=== PATIENT | female | born 1995 | race Caucasian/White ===

== ENCOUNTER 2018-07-07 03:38 | Emergency (ER) | payer MEDICAID ==
[~2018-07-07] VITALS: Ht 162.6 cm; Wt 69.0 kg
[~2018-07-07 03:38] MED LIST: IBUP-1594 PO
[2018-07-07] MEDS ORDERED: HYDROcodone/acetaminophen 10/325mg tab PO ONE (04:50)
[2018-07-07] MEDS ORDERED: amox tr/potassium clavulanate 875/125mg TAB PO ONE (04:50)
[2018-07-07] MEDS ORDERED: AMOX-580 PO (04:51)
[2018-07-07] MEDS ORDERED: HYDR-4383 PO (04:51)
[2018-07-07 05:21] VITALS: BP 122/74
== END 2018-07-07 05:37 | disposition home or self-care (01) ==
LOC: ER 03:39
DX: K02.9 Dental caries, unspecified (principal); K04.7 Periapical abscess without sinus; Z56.0 Unemployment, unspecified; Z79.899 Other long term (current) drug therapy
CPT/HCPCS: 99283

== ENCOUNTER 2018-08-21 08:36 | Emergency (ER) | payer MEDICAID ==
[~2018-08-21] VITALS: Ht 162.6 cm; Wt 71.0 kg
[~2018-08-21 08:36] MED LIST changes: +HYDR-4383 PO
[2018-08-21 09:57] LABS: BASOPHILS % (AUTO) 0.5 % (0-1); EOSINOPHILS # (AUTO) 0.1 X10'3 (0-0.9); EOSINOPHILS % (AUTO) 1.5 % (0-6); HEMATOCRIT 38.5 % (35.0-45.0); HEMOGLOBIN 13.2 g/dl (12.0-16.0); LYMPHOCYTES # (AUTO) 1.6 X10'3 (1.1-4.8); LYMPHOCYTES % (AUTO) 25.8 % (21-51); MEAN CORPUSCULAR HEMOGLOBIN 31.4 PG (27.0-31.0); MEAN CORPUSCULAR HGB CONC 34.3 g/dL (33.0-36.5); MEAN CORPUSCULAR VOLUME 91.4 FL (78-98); MEAN PLATELET VOLUME 7.1 FL (7.4-10.4); MONOCYTES # (AUTO) 0.6 X10'3 (0-0.9); MONOCYTES % (AUTO) 9.4 % (2-12); NEUTROPHILS # (AUTO) 3.9 X10'3 (1.8-7.7); NEUTROPHILS % (AUTO) 62.8 % (42-75); PLATELET COUNT 219 X10'3 (140-440); RED BLOOD COUNT 4.21 X10'6 (4.20-5.60); RED CELL DISTRIBUTION WIDTH 13.1 % (11.5-14.5); WHITE BLOOD COUNT 6.2 X10'3 (4.5-11.0)
[2018-08-21 10:06] LABS: ALANINE AMINOTRANSFERASE 26 U/L (12-78); ALBUMIN 3.7 G/DL (3.4-5.0); ALBUMIN/GLOBULIN RATIO 1.1 (1.1-1.5); ALKALINE PHOSPHATASE 72 IU/L (46-116); ANION GAP 8 (8-16); ASPARTATE AMINO TRANSFERASE 17 U/L (10-37); BILIRUBIN,TOTAL 0.4 MG/DL (0.1-1.0); BLOOD UREA NITROGEN 9 MG/DL (7-18); BUN/CREATININE RATIO 12.7 (6.6-38.0); CALCIUM 8.8 MG/DL (8.5-10.1); CHLORIDE 106 MMOL/L (99-107); CREATININE 0.71 MG/DL (0.40-0.90); GLUCOSE 90 MG/DL (70-104); POTASSIUM 3.8 MMOL/L (3.5-5.1); SODIUM 138 MMOL/L (135-145); TOTAL CARBON DIOXIDE 24.5 MMOL/L (24-32); eGFR > 90 ML/MIN
[2018-08-21 10:13] LABS: MAGNESIUM 1.9 MG/DL (1.5-2.4); PHOSPHORUS 3.5 MG/DL (2.3-4.5)
[2018-08-21] MEDS ORDERED: levoTHYROXINE 112mcg tablet PO SCH (11:20)
[2018-08-21] MEDS ORDERED: levoTHYROXINE 112mcg tablet PO ONE (11:20)
[2018-08-21] MEDS ORDERED: LEVO75TA PO (11:23)
[2018-08-21 11:43] VITALS: BP 119/80
== END 2018-08-21 11:48 | disposition home or self-care (01) ==
LOC: ER 08:37
DX: E03.9 Hypothyroidism, unspecified (principal); H53.9 Unspecified visual disturbance; Z56.0 Unemployment, unspecified; Z88.8 Allergy status to other drugs, medicaments and biological substances; Z79.899 Other long term (current) drug therapy
CPT/HCPCS: 36415; 80053; 83735; 84100; 84443; 85025; 99283

== ENCOUNTER 2018-10-05 06:15 | Emergency (ER) | payer MEDICAID ==
[~2018-10-05] VITALS: Ht 160 cm; Wt 68.6 kg
[2018-10-05 06:20] VITALS: BP 117/66
[2018-10-05] MEDS ORDERED: CEPH500C5 PO (07:04)
== END 2018-10-05 07:30 | disposition home or self-care (01) ==
LOC: ER 06:16
DX: S40.861A Insect bite (nonvenomous) of right upper arm, initial encounter (principal); L03.113 Cellulitis of right upper limb; Z56.0 Unemployment, unspecified; Z79.899 Other long term (current) drug therapy; W57.XXXA Bitten or stung by nonvenomous insect and other nonvenomous arthropods, initial encounter; Y93.89 Activity, other specified; Y92.89 Other specified places as the place of occurrence of the external cause; Y99.8 Other external cause status
CPT/HCPCS: 99283

== ENCOUNTER 2018-12-29 17:55 | Emergency (ER) | payer MEDICAID ==
[~2018-12-29] VITALS: Ht 160 cm; Wt 80.0 kg
[~2018-12-29 17:55] MED LIST changes: +CEPH500C5 PO
[2018-12-29] MEDS ORDERED: PENI500T2 PO (18:28)
[2018-12-29] MEDS ORDERED: HYDR-4353 PO (18:28)
[2018-12-29 18:38] VITALS: BP 120/87
== END 2018-12-29 18:40 | disposition home or self-care (01) ==
LOC: ER 17:56
DX: K04.7 Periapical abscess without sinus (principal); E11.9 Type 2 diabetes mellitus without complications; Z56.0 Unemployment, unspecified; Z79.2 Long term (current) use of antibiotics; Z79.899 Other long term (current) drug therapy
CPT/HCPCS: 99283

== ENCOUNTER 2019-09-05 14:46 | Emergency (ER) | payer MEDICAID ==
[~2019-09-05] VITALS: Ht 162.6 cm; Wt 77.3 kg
[2019-09-05 14:57] VITALS: BP 122/77
[2019-09-05] MEDS ORDERED: penicillin V potassium 500mg tablet PO ONE (16:00)
[2019-09-05] MEDS ORDERED: IBUP-1984 PO (16:00)
[2019-09-05] MEDS ORDERED: PENI500T2 PO (16:00)
[2019-09-05] MEDS ORDERED: HYDROcodone/acetaminophen 10/325mg tab PO ONE (16:00)
== END 2019-09-05 16:17 | disposition home or self-care (01) ==
LOC: ER 14:47
DX: K02.9 Dental caries, unspecified (principal); Z56.0 Unemployment, unspecified; Z79.899 Other long term (current) drug therapy
CPT/HCPCS: 99283

== ENCOUNTER 2019-09-07 08:25 | Emergency (ER) | payer MEDICAID ==
[~2019-09-07] VITALS: Ht 162.6 cm; Wt 77.3 kg
[~2019-09-07 08:25] MED LIST changes: +IBUP-1984 PO; +PENI500T2 PO
[2019-09-07] MEDS ORDERED: ketorolac trometh. 30mg/ml inj. IM ONE (09:05)
[2019-09-07] MEDS ORDERED: normal saline 1000ml 1,000 ML IV ONE (09:45)
[2019-09-07] MEDS ORDERED: clindamycin phosphate inj 600 MG in normal saline 50ml IV soln 50 ML IV ONE (09:45)
[2019-09-07 09:55] VITALS: BP 125/89
[2019-09-07 10:02] LABS: BASOPHILS % (AUTO) 0.6 % (0-1); EOSINOPHILS # (AUTO) 0.1 X10'3 (0-0.9); EOSINOPHILS % (AUTO) 1.4 % (0-6); HEMATOCRIT 42.3 % (35.0-45.0); HEMOGLOBIN 14.4 g/dl (12.0-16.0); LYMPHOCYTES # (AUTO) 1.6 X10'3 (1.1-4.8); LYMPHOCYTES % (AUTO) 20.5 % (21-51); MEAN CORPUSCULAR HEMOGLOBIN 31.9 PG (27.0-31.0); MEAN CORPUSCULAR VOLUME 93.9 FL (78-98); MONOCYTES # (AUTO) 0.7 X10'3 (0-0.9); MONOCYTES % (AUTO) 8.7 % (2-12); NEUTROPHILS # (AUTO) 5.3 X10'3 (1.8-7.7); NEUTROPHILS % (AUTO) 68.8 % (42-75); PLATELET COUNT 252 X10'3 (140-440); RED CELL DISTRIBUTION WIDTH 12.5 % (11.5-14.5); WHITE BLOOD COUNT 7.8 X10'3 (4.5-11.0)
[2019-09-07 10:16] LABS: ALANINE AMINOTRANSFERASE 33 U/L (12-78); ALBUMIN 3.9 G/DL (3.4-5.0); ALKALINE PHOSPHATASE 99 IU/L (46-116); ANION GAP 9 (8-16); ASPARTATE AMINO TRANSFERASE 23 U/L (10-37); BILIRUBIN,TOTAL 0.7 MG/DL (0.1-1.0); BLOOD UREA NITROGEN 8 MG/DL (7-18); BUN/CREATININE RATIO 10.8 (6.6-38.0); CALCIUM 9.2 MG/DL (8.5-10.1); CHLORIDE 104 MMOL/L (99-107); CREATININE 0.74 MG/DL (0.40-0.90); GLUCOSE 107 MG/DL (70-104); POTASSIUM 3.6 MMOL/L (3.5-5.1); SODIUM 138 MMOL/L (135-145); TOTAL CARBON DIOXIDE 25.3 MMOL/L (24-32); TOTAL PROTEIN 7.9 G/DL (6.4-8.2); eGFR > 90 ML/MIN
[2019-09-07] MEDS ORDERED: CLIN150C8 PO (10:24)
[2019-09-07] MEDS ORDERED: ketorolac trometh. 30mg/ml inj. IV ONE (10:25)
[2019-09-07] MEDS ORDERED: ONDA8TAB6 PO (10:31)
== END 2019-09-07 10:47 | disposition home or self-care (01) ==
LOC: ER 08:26
DX: K04.7 Periapical abscess without sinus (principal); Z56.0 Unemployment, unspecified; Z79.2 Long term (current) use of antibiotics; Z79.899 Other long term (current) drug therapy
CPT/HCPCS: 36415; 41800; 80053; 83605; 84145; 85025; 87040; 96365; 99284; J1885; J3490; J7030

== ENCOUNTER 2020-02-14 18:21 | Emergency (ER) | payer MEDICAID ==
[~2020-02-14] VITALS: Ht 162.6 cm; Wt 70.9 kg
[~2020-02-14 18:21] MED LIST changes: -CEPH500C5 PO; +CLIN150C8 PO; -IBUP-1984 PO; +ONDA8TAB6 PO; -PENI500T2 PO
[2020-02-14] MEDS ORDERED: ondansetron 4mg rapidly disintigrating tab PO ONE (19:00)
[2020-02-14 19:51] LABS: URINE HCG NEGATIVE (NEG)
[2020-02-14 19:57] LABS: CLARITY,URINE CLEAR (Clear); COLOR,URINE YELLOW (Yellow); GLUCOSE, URINE NEGATIVE (Neg); KETONES,URINE TRACE mg/dl (Neg); LEUKOCYTE ESTERASE ,URINE TRACE (Neg); NITRITES, URINE NEGATIVE (Neg); OCCULT BLOOD,URINE TRACE-INTACT (Neg); PROTEIN,URINE NEGATIVE (Neg); UA COLLECTION TYPE CLN CATCH MIDSTREAM
[2020-02-14 20:07] LABS: BACTERIA,URINE FEW /HPF (Neg); MUCUS STRANDS MANY /LPF (Neg); RBC,URINE 0-2 /HPF (0-2); SQUAMOUS EPITHELIAL CELL,UR MANY /LPF (FEW); WBC,URINE 0-4 /HPF (0-4)
[2020-02-14 20:36] LABS: EOSINOPHILS # (AUTO) 0.1 X10'3 (0-0.9); MEAN CORPUSCULAR HGB CONC 34.3 g/dL (33.0-36.5); MONOCYTES # (AUTO) 0.6 X10'3 (0-0.9); WHITE BLOOD COUNT 6.7 X10'3 (4.5-11.0)
[2020-02-14 20:37] LABS: BASOPHILS % (AUTO) 0.6 % (0-1); EOSINOPHILS % (AUTO) 1.5 % (0-6); HEMATOCRIT 38.9 % (35.0-45.0); HEMOGLOBIN 13.3 g/dl (12.0-16.0); LYMPHOCYTES % (AUTO) 29.8 % (21-51); MEAN CORPUSCULAR HEMOGLOBIN 31.9 PG (27.0-31.0); MEAN CORPUSCULAR VOLUME 92.8 FL (78-98); MEAN PLATELET VOLUME 7.2 FL (7.4-10.4); MONOCYTES % (AUTO) 8.9 % (2-12); NEUTROPHILS % (AUTO) 59.2 % (42-75); PLATELET COUNT 231 X10'3 (140-440); RED BLOOD COUNT 4.19 X10'6 (4.20-5.60); RED CELL DISTRIBUTION WIDTH 12.3 % (11.5-14.5)
[2020-02-14 20:46] LABS: ALANINE AMINOTRANSFERASE 24 U/L (12-78); ALBUMIN 3.8 G/DL (3.4-5.0); ALBUMIN/GLOBULIN RATIO 1.1 (1.1-1.5); ALKALINE PHOSPHATASE 76 IU/L (46-116); ANION GAP 9 (8-16); ASPARTATE AMINO TRANSFERASE 16 U/L (10-37); BILIRUBIN,TOTAL 0.3 MG/DL (0.1-1.0); BLOOD UREA NITROGEN 13 MG/DL (7-18); BUN/CREATININE RATIO 19.1 (6.6-38.0); CALCIUM 8.8 MG/DL (8.5-10.1); CHLORIDE 106 MMOL/L (99-107); CREATININE 0.68 MG/DL (0.40-0.90); GLUCOSE 111 MG/DL (70-104); LIPASE 147 U/L (73-393); POTASSIUM 3.5 MMOL/L (3.5-5.1); SODIUM 140 MMOL/L (135-145); TOTAL CARBON DIOXIDE 24.7 MMOL/L (24-32); TOTAL PROTEIN 7.4 G/DL (6.4-8.2); eGFR > 90 ML/MIN
[2020-02-14 21:19] VITALS: BP 106/80
== END 2020-02-14 21:20 | disposition home or self-care (01) ==
LOC: ER 18:21
DX: N93.9 Abnormal uterine and vaginal bleeding, unspecified (principal); Z56.0 Unemployment, unspecified; Z87.440 Personal history of urinary (tract) infections; Z79.2 Long term (current) use of antibiotics; Z79.899 Other long term (current) drug therapy
CPT/HCPCS: 36415; 74176; 80053; 81001; 81025; 83690; 85025; 99284

== ENCOUNTER 2020-04-11 09:12 | Emergency (ER) | payer MEDICAID ==
[~2020-04-11] VITALS: Ht 160 cm; Wt 7.3 kg
[2020-04-11] MEDS ORDERED: normal saline 1000ML IV soln IVB ONE (10:10)
[2020-04-11 10:35] LABS: BASOPHILS % (AUTO) 0.6 % (0-1); EOSINOPHILS # (AUTO) 0.1 X10'3 (0-0.9); EOSINOPHILS % (AUTO) 1.5 % (0-6); HEMATOCRIT 41.9 % (35.0-45.0); HEMOGLOBIN 14.1 g/dl (12.0-16.0); LYMPHOCYTES # (AUTO) 1.5 X10'3 (1.1-4.8); LYMPHOCYTES % (AUTO) 29.3 % (21-51); MEAN CORPUSCULAR HEMOGLOBIN 31.2 PG (27.0-31.0); MEAN CORPUSCULAR HGB CONC 33.8 g/dL (33.0-36.5); MEAN CORPUSCULAR VOLUME 92.5 FL (78-98); MEAN PLATELET VOLUME 7.3 FL (7.4-10.4); MONOCYTES # (AUTO) 0.5 X10'3 (0-0.9); MONOCYTES % (AUTO) 9.3 % (2-12); NEUTROPHILS % (AUTO) 59.3 % (42-75); PLATELET COUNT 238 X10'3 (140-440); RED BLOOD COUNT 4.53 X10'6 (4.20-5.60); RED CELL DISTRIBUTION WIDTH 12.5 % (11.5-14.5); WHITE BLOOD COUNT 5.1 X10'3 (4.5-11.0)
[2020-04-11 11:27] LABS: ALANINE AMINOTRANSFERASE 25 U/L (12-78); ALBUMIN 3.9 G/DL (3.4-5.0); ALKALINE PHOSPHATASE 98 IU/L (46-116); ANION GAP 9 (8-16); ASPARTATE AMINO TRANSFERASE 19 U/L (10-37); BILIRUBIN,TOTAL 0.5 MG/DL (0.1-1.0); BLOOD UREA NITROGEN 9 MG/DL (7-18); BUN/CREATININE RATIO 14.1 (6.6-38.0); CALCIUM 9.4 MG/DL (8.5-10.1); CHLORIDE 104 MMOL/L (99-107); CREATININE 0.64 MG/DL (0.40-0.90); GLUCOSE 91 MG/DL (70-104); POTASSIUM 3.9 MMOL/L (3.5-5.1); SODIUM 139 MMOL/L (135-145); TOTAL CARBON DIOXIDE 26.1 MMOL/L (24-32); TOTAL PROTEIN 7.7 G/DL (6.4-8.2); eGFR > 90 ML/MIN
[2020-04-11] MEDS ORDERED: meclizine 12.5mg tablet PO ONE (11:40)
[2020-04-11 12:36] LABS: URINE HCG NEGATIVE (NEG)
[2020-04-11 12:45] LABS: TROPONIN I < 0.04 NG/ML (0.0-0.05)
[2020-04-11] MEDS ORDERED: MECL-159 PO (13:13)
[2020-04-11 13:48] VITALS: BP 108/74
== END 2020-04-11 17:15 | disposition home or self-care (01) ==
LOC: ER 09:13
DX: R42 Dizziness and giddiness (principal); R00.0 Tachycardia, unspecified; R53.83 Other fatigue; E07.9 Disorder of thyroid, unspecified; Z56.0 Unemployment, unspecified; Z72.89 Other problems related to lifestyle; Z87.440 Personal history of urinary (tract) infections; Z88.8 Allergy status to other drugs, medicaments and biological substances; Z79.2 Long term (current) use of antibiotics; Z79.899 Other long term (current) drug therapy
CPT/HCPCS: 36415; 80053; 81025; 83735; 84443; 84484; 85025; 93005; 96360; 99284; J7030; J8597

== ENCOUNTER 2020-06-21 18:49 | Emergency (ER) | payer BC, MEDICAID ==
[~2020-06-21] VITALS: Ht 170.2 cm; Wt 68.2 kg
[~2020-06-21 18:49] MED LIST changes: +MECL-159 PO
[2020-06-21 19:19] VITALS: BP 118/78
[2020-06-21] MEDS ORDERED: GABA300C PO (20:14)
[2020-06-21] MEDS ORDERED: ketorolac tromethamine 15mg/ml inj. IM ONE (20:15)
[2020-06-21] MEDS ORDERED: orphenadrine citrate 60mg/2ml inj. IM ONE (20:15)
== END 2020-06-21 20:31 | disposition home or self-care (01) ==
LOC: ER 18:51
DX: M54.41 Lumbago with sciatica, right side (principal); E07.9 Disorder of thyroid, unspecified; Z87.448 Personal history of other diseases of urinary system
CPT/HCPCS: 96372; 99284; J1885; J2360

== ENCOUNTER 2020-07-07 14:39 | Emergency (ER) | payer BC, MEDICAID ==
[~2020-07-07] VITALS: Ht 160 cm; Wt 72.7 kg
[~2020-07-07 14:39] MED LIST changes: +GABA300C PO
[2020-07-07 15:46] LABS: BASOPHILS % (AUTO) 0.3 % (0-1); EOSINOPHILS # (AUTO) 0.1 X10'3 (0-0.9); EOSINOPHILS % (AUTO) 1.6 % (0-6); HEMATOCRIT 40.1 % (35.0-45.0); HEMOGLOBIN 13.8 g/dl (12.0-16.0); LYMPHOCYTES % (AUTO) 25.7 % (21-51); MEAN CORPUSCULAR HEMOGLOBIN 31.5 PG (27.0-31.0); MEAN CORPUSCULAR HGB CONC 34.3 g/dL (33.0-36.5); MEAN CORPUSCULAR VOLUME 91.8 FL (78-98); MONOCYTES # (AUTO) 0.5 X10'3 (0-0.9); MONOCYTES % (AUTO) 6.8 % (2-12); NEUTROPHILS # (AUTO) 5.2 X10'3 (1.8-7.7); NEUTROPHILS % (AUTO) 65.6 % (42-75); PLATELET COUNT 248 X10'3 (140-440); RED BLOOD COUNT 4.37 X10'6 (4.20-5.60); RED CELL DISTRIBUTION WIDTH 12.3 % (11.5-14.5); WHITE BLOOD COUNT 7.9 X10'3 (4.5-11.0)
[2020-07-07 16:16] LABS: ALANINE AMINOTRANSFERASE 37 U/L (12-78); ALBUMIN 3.9 G/DL (3.4-5.0); ALKALINE PHOSPHATASE 93 IU/L (46-116); AMYLASE 81 U/L (25-115); ANION GAP 9 (8-16); ASPARTATE AMINO TRANSFERASE 21 U/L (10-37); BILIRUBIN,TOTAL 0.3 MG/DL (0.1-1.0); BLOOD UREA NITROGEN 11 MG/DL (7-18); BUN/CREATININE RATIO 15.1 (6.6-38.0); CALCIUM 9.1 MG/DL (8.5-10.1); CHLORIDE 104 MMOL/L (99-107); CREATININE 0.73 MG/DL (0.40-0.90); GLUCOSE 91 MG/DL (70-104); LIPASE 116 U/L (73-393); POTASSIUM 3.6 MMOL/L (3.5-5.1); SODIUM 139 MMOL/L (135-145); TOTAL CARBON DIOXIDE 25.8 MMOL/L (24-32); TOTAL PROTEIN 7.7 G/DL (6.4-8.2); eGFR > 90 ML/MIN
[2020-07-07] MEDS ORDERED: normal saline 1000ML IV soln IVB ONE (16:25)
[2020-07-07] MEDS ORDERED: ondansetron/PF 4mg/2ml inj IV ONE (16:25)
[2020-07-07] MEDS ORDERED: ketorolac tromethamine 15mg/ml inj. IV ONE (16:25)
[2020-07-07 16:27] LABS: URINE HCG NEGATIVE (NEG)
[2020-07-07 16:38] LABS: CLARITY,URINE SLIGHTLY CLOUDY (Clear); COLOR,URINE STRAW (Yellow); GLUCOSE, URINE NEGATIVE (Neg); KETONES,URINE NEGATIVE (Neg); LEUKOCYTE ESTERASE ,URINE TRACE (Neg); NITRITES, URINE NEGATIVE (Neg); OCCULT BLOOD,URINE TRACE-INTACT (Neg); PH,URINE 6.5 (4.8-8.0); PROTEIN,URINE NEGATIVE (Neg); UROBILINOGEN,URINE 0.2 E.U/dL (0.2-1.0)
[2020-07-07 16:39] LABS: UA COLLECTION TYPE CLN CATCH MIDSTREAM
[2020-07-07 16:44] LABS: MUCUS STRANDS FEW /LPF (Neg); SQUAMOUS EPITHELIAL CELL,UR MANY /LPF (FEW)
[2020-07-07 16:45] LABS: BACTERIA,URINE 1+ /HPF (Neg); RBC,URINE 0-2 /HPF (0-2); WBC,URINE 0-4 /HPF (0-4)
[2020-07-07 18:51] VITALS: BP 126/88
== END 2020-07-07 18:06 | disposition home or self-care (01) ==
LOC: ER 14:40
DX: R10.84 Generalized abdominal pain (principal); Z87.440 Personal history of urinary (tract) infections; Z56.0 Unemployment, unspecified; Z79.2 Long term (current) use of antibiotics; Z79.899 Other long term (current) drug therapy
CPT/HCPCS: 36415; 76700; 76856; 80053; 81001; 81025; 82150; 83690; 85025; 93976; 96361; 96374; 96375; 99285; J1885; J2405; J7030

== ENCOUNTER 2020-08-30 15:33 | Emergency (ER) | payer BC, MEDICAID ==
[~2020-08-30] VITALS: Ht 157.5 cm; Wt 67.0 kg
[2020-08-30 17:33] LABS: CLARITY,URINE CLOUDY (Clear); COLOR,URINE YELLOW (Yellow); GLUCOSE, URINE NEGATIVE (Neg); KETONES,URINE NEGATIVE (Neg); LEUKOCYTE ESTERASE ,URINE TRACE (Neg); NITRITES, URINE NEGATIVE (Neg); OCCULT BLOOD,URINE TRACE-INTACT (Neg); PH,URINE 5.5 (4.8-8.0); PROTEIN,URINE NEGATIVE (Neg); UROBILINOGEN,URINE 0.2 E.U/dL (0.2-1.0)
[2020-08-30 17:46] LABS: UA COLLECTION TYPE CLN CATCH MIDSTREAM
[2020-08-30 17:51] LABS: MUCUS STRANDS NONE SEEN /LPF (Neg); SQUAMOUS EPITHELIAL CELL,UR MANY /LPF (FEW); TRANSITIONAL EPI CELLS,URINE FEW /HPF
[2020-08-30 17:52] LABS: WBC,URINE 0-4 /HPF (0-4)
[2020-08-30 17:53] LABS: BACTERIA,URINE FEW /HPF (Neg); RBC,URINE 0-2 /HPF (0-2)
[2020-08-30 19:10] LABS: URINE HCG NEGATIVE (NEG)
[2020-08-30] MEDS ORDERED: HYDR-3972 PO (20:57)
[2020-08-30] MEDS ORDERED: ORPH100T2 PO (20:57)
[2020-08-30] MEDS ORDERED: HYDROcodone/acetaminophen 10/325mg tab PO ONE (21:00)
[2020-08-30] MEDS ORDERED: ketorolac trometh. 30mg/ml inj. IM ONE (21:00)
[2020-08-30 21:41] VITALS: BP 116/85
== END 2020-08-30 21:43 | disposition home or self-care (01) ==
LOC: ER 15:34
DX: S70.02XA Contusion of left hip, initial encounter (principal); M79.18 Myalgia, other site; M25.552 Pain in left hip; Z87.440 Personal history of urinary (tract) infections; Z72.89 Other problems related to lifestyle; Z56.0 Unemployment, unspecified; Z79.2 Long term (current) use of antibiotics; Z79.899 Other long term (current) drug therapy; W19.XXXA Unspecified fall, initial encounter; Y93.89 Activity, other specified; Y92.89 Other specified places as the place of occurrence of the external cause; Y99.8 Other external cause status
CPT/HCPCS: 73522; 81001; 81025; 96372; 99284; J1885

== ENCOUNTER 2020-09-18 20:52 | Emergency (ER) | payer BC, MEDICAID ==
[~2020-09-18 20:52] MED LIST changes: +HYDR-3972 PO; +ORPH100T2 PO
== END 2020-09-18 21:19 | disposition left against medical advice (07) ==
LOC: ER 20:53
DX: R06.02 Shortness of breath (principal); Z53.21 Procedure and treatment not carried out due to patient leaving prior to being seen by health care provider

== ENCOUNTER 2021-02-01 16:32 | Emergency (ER) | payer BC, MEDICAID ==
[~2021-02-01] VITALS: Ht 162.6 cm; Wt 72.7 kg
[~2021-02-01 16:32] MED LIST changes: -HYDR-3972 PO
[2021-02-01] MEDS ORDERED: ondansetron 4mg rapidly disintigrating tab PO ONE ×2 (17:00→17:35)
[2021-02-01] MEDS ORDERED: morphine 4 MG/ML inj SYRINge IV ONE ×2 (17:05→17:35)
[2021-02-01] MEDS ORDERED: normal saline 1000ML IV soln IVB ONE (17:05)
[2021-02-01] MEDS ORDERED: normal saline 1000ml 1,000 ML IV ONE ×3 (17:35→22:05)
[2021-02-01 17:36] LABS: BASOPHILS # (AUTO) 0.1 X10'3 (0-0.2); BASOPHILS % (AUTO) 0.5 % (0-1); EOSINOPHILS # (AUTO) 0.1 X10'3 (0-0.9); EOSINOPHILS % (AUTO) 0.4 % (0-6); HEMATOCRIT 46.6 % (35.0-45.0); HEMOGLOBIN 16.3 g/dl (12.0-16.0); LYMPHOCYTES % (AUTO) 5.9 % (21-51); MEAN CORPUSCULAR HEMOGLOBIN 32.1 PG (27.0-31.0); MEAN CORPUSCULAR HGB CONC 34.9 g/dL (33.0-36.5); MEAN CORPUSCULAR VOLUME 91.9 FL (78-98); MEAN PLATELET VOLUME 7.2 FL (7.4-10.4); MONOCYTES # (AUTO) 0.7 X10'3 (0-0.9); MONOCYTES % (AUTO) 4.1 % (2-12); NEUTROPHILS # (AUTO) 14.5 X10'3 (1.8-7.7); NEUTROPHILS % (AUTO) 89.1 % (42-75); PLATELET COUNT 283 X10'3 (140-440); RED BLOOD COUNT 5.07 X10'6 (4.20-5.60); RED CELL DISTRIBUTION WIDTH 12.6 % (11.5-14.5); WHITE BLOOD COUNT 16.3 X10'3 (4.5-11.0)
[2021-02-01 17:46] LABS: ALANINE AMINOTRANSFERASE 29 U/L (12-78); ALBUMIN 4.6 G/DL (3.4-5.0); ALKALINE PHOSPHATASE 91 IU/L (46-116); AMYLASE 76 U/L (25-115); ANION GAP 16 (8-16); ASPARTATE AMINO TRANSFERASE 17 U/L (10-37); BILIRUBIN,TOTAL 0.7 MG/DL (0.1-1.0); BLOOD UREA NITROGEN 10 MG/DL (7-18); BUN/CREATININE RATIO 13.3 (6.6-38.0); CALCIUM 10.4 MG/DL (8.5-10.1); CHLORIDE 104 MMOL/L (99-107); CREATININE 0.75 MG/DL (0.40-0.90); GLUCOSE 110 MG/DL (70-104); LIPASE 81 U/L (73-393); POTASSIUM 4.3 MMOL/L (3.5-5.1); SODIUM 138 MMOL/L (135-145); TOTAL CARBON DIOXIDE 18.2 MMOL/L (24-32); TOTAL PROTEIN 9.1 G/DL (6.4-8.2); eGFR > 90 ML/MIN
[2021-02-01 18:04] LABS: HCG SERUM QL NEGATIVE
[2021-02-01] MEDS ORDERED: iohexol 300mg/ml 100ml inj. ONE (18:16)
[2021-02-01] MEDS ORDERED: ondansetron/PF 4mg/2ml inj IV ONE (20:20)
[2021-02-01] MEDS ORDERED: proCHLORperazine 10 MG/2 ml inj IV ONE (20:40)
[2021-02-01] MEDS ORDERED: famotidine/PF 10 mg/ml inj IV ONE (20:40)
[2021-02-01] MEDS ORDERED: diphenhydrAMINE 50 mg/ml inj IV ONE (20:40)
[2021-02-01] MEDS ORDERED: pantoprazole 40MG/D5 100ML BAG 100 ML IV ONE (20:40)
[2021-02-01] MEDS ORDERED: pantoprazole 40MG/NS 100ML BAG 100 ML IV ONE (20:45)
[2021-02-01] MEDS ORDERED: LORazepam 2 mg/ml vial IV ONE (22:05)
[2021-02-01] MEDS ORDERED: pantoprazole 40mg Tablet.DR PO ONE (22:26)
[2021-02-01] MEDS ORDERED: ONDA4TAB6 PO (22:35)
[2021-02-01 23:04] VITALS: BP 105/74
== END 2021-02-01 23:05 | disposition home or self-care (01) ==
LOC: ER 16:33
DX: A08.4 Viral intestinal infection, unspecified (principal); Z20.822 Contact with and (suspected) exposure to COVID-19; E86.0 Dehydration; R10.31 Right lower quadrant pain; R11.2 Nausea with vomiting, unspecified; R19.7 Diarrhea, unspecified; Z87.440 Personal history of urinary (tract) infections; Z72.89 Other problems related to lifestyle; Z56.0 Unemployment, unspecified; Z79.2 Long term (current) use of antibiotics; Z79.899 Other long term (current) drug therapy
CPT/HCPCS: 36415; 74177; 80053; 82150; 83690; 84703; 85025; 87635; 96361; 96374; 96375; 99285; C9803; J0780; J1200; J2270; J3490; J7030; Q9967

== ENCOUNTER 2021-07-29 18:15 | Emergency (ER) | payer OTHER, MEDICAID ==
[~2021-07-29] VITALS: Ht 160 cm; Wt 65.9 kg
[~2021-07-29 18:15] MED LIST changes: +ONDA4TAB6 PO
[2021-07-29 18:42] VITALS: BP 130/83
--- NOTE | 2021-07-29 18:44 | NUR ---
KIT APPROVED BY [facility] OFFICER JOSE, CASE #[id number]
[2021-07-29] MEDS ORDERED: azithromycin 250mg tablet PO ONE (19:15)
[2021-07-29] MEDS ORDERED: CefTRIAXone 500MG IM Kit w/LIDOcaine IM ONE (19:15)
[2021-07-29] MEDS ORDERED: LEVONORGESTREL 1.5MG tablet 1.5 MG TABLET PO ONE (19:15)
[2021-07-29] MEDS ORDERED: TINIDAZOLE 500 MG TABLET PO ONE (19:15)
[2021-07-29 19:30] LABS: URINE HCG NEGATIVE (NEG)
[2021-07-29] MEDS ORDERED: naproxen 500mg tablet PO ONE (20:55)
[2021-07-29] MEDS ORDERED: LEVO75TA7 PO (20:57)
[2021-07-29] MEDS ORDERED: NAPR-56 PO (20:58)
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
== END 2021-07-29 22:37 | disposition home or self-care (01) ==
LOC: EEVIPCON 18:15 → ER 18:15
DX: T74.21XA Adult sexual abuse, confirmed, initial encounter (principal); S20.211A Contusion of right front wall of thorax, initial encounter; F17.200 Nicotine dependence, unspecified, uncomplicated; Z59.00 Homelessness unspecified; Z79.899 Other long term (current) drug therapy; Z88.8 Allergy status to other drugs, medicaments and biological substances
CPT/HCPCS: 81025; 96372; 99284; J0696

== ENCOUNTER 2022-04-01 11:01 | Emergency (ER) | payer MEDICAID, OTHER ==
[~2022-04-01] VITALS: Ht 165.1 cm; Wt 59.0 kg
[~2022-04-01 11:01] MED LIST changes: -CLIN150C8 PO; -GABA300C PO; -HYDR-4383 PO; -IBUP-1594 PO; +LEVO75TA7 PO; -MECL-159 PO; -ONDA4TAB6 PO; -ONDA8TAB6 PO; -ORPH100T2 PO
[2022-04-01] MEDS ORDERED: CefTRIAXone 2gm/D5W 50ml BAG 50 ML IV ONE (11:56)
[2022-04-01] MEDS ORDERED: ondansetron/PF 4mg/2ml inj IV ONE (11:57)
[2022-04-01] MEDS ORDERED: morphine 4 MG/ML inj SYRINge IV ONE ×2 (12:00→23:55)
[2022-04-01] MEDS ORDERED: normal saline 1000ML IV soln IV ONE (12:00)
[2022-04-01 12:02] LABS: BASOPHILS % (AUTO) 0.2 % (0-1); EOSINOPHILS % (AUTO) 0.2 % (0-6); HEMATOCRIT 35.7 % (35.0-45.0); HEMOGLOBIN 12.2 g/dl (12.0-16.0); LYMPHOCYTES # (AUTO) 0.7 X10'3 (1.1-4.8); MEAN CORPUSCULAR HEMOGLOBIN 32.3 PG (27.0-31.0); MEAN CORPUSCULAR HGB CONC 34.2 g/dL (33.0-36.5); MEAN CORPUSCULAR VOLUME 94.4 FL (78-98); MEAN PLATELET VOLUME 6.7 FL (7.4-10.4); MONOCYTES # (AUTO) 0.7 X10'3 (0-0.9); MONOCYTES % (AUTO) 7.9 % (2-12); NEUTROPHILS # (AUTO) 6.9 X10'3 (1.8-7.7); NEUTROPHILS % (AUTO) 82.7 % (42-75); PLATELET COUNT 238 X10'3 (140-440); RED BLOOD COUNT 3.79 X10'6 (4.20-5.60); RED CELL DISTRIBUTION WIDTH 13.3 % (11.5-14.5); WHITE BLOOD COUNT 8.3 X10'3 (4.5-11.0)
[2022-04-01 12:17] LABS: ALANINE AMINOTRANSFERASE 33 U/L (12-78); ALBUMIN 3.1 G/DL (3.4-5.0); ALBUMIN/GLOBULIN RATIO 0.7 (1.1-1.5); ALKALINE PHOSPHATASE 152 IU/L (46-116); ANION GAP 10 (8-16); ASPARTATE AMINO TRANSFERASE 32 U/L (10-37); BILIRUBIN,TOTAL 0.8 MG/DL (0.1-1.0); BLOOD UREA NITROGEN 8 MG/DL (7-18); BUN/CREATININE RATIO 13.6 (6.6-38.0); CALCIUM 9.3 MG/DL (8.5-10.1); CHLORIDE 101 MMOL/L (99-107); CREATININE 0.59 MG/DL (0.40-0.90); GLUCOSE 81 MG/DL (70-104); MAGNESIUM 1.7 MG/DL (1.5-2.4); POTASSIUM 3.2 MMOL/L (3.5-5.1); SODIUM 134 MMOL/L (135-145); TOTAL CARBON DIOXIDE 23.3 MMOL/L (24-32); TOTAL PROTEIN 7.6 G/DL (6.4-8.2); eGFR > 90 ML/MIN
[2022-04-01 14:43] LABS: CLARITY,URINE SLIGHTLY CLOUDY (Clear); COLOR,URINE YELLOW (Yellow); GLUCOSE, URINE NEGATIVE (Neg); KETONES,URINE >=80 mg/dl (Neg); LEUKOCYTE ESTERASE ,URINE NEGATIVE (Neg); NITRITES, URINE POSITIVE (Neg); OCCULT BLOOD,URINE NEGATIVE (Neg); PROTEIN,URINE NEGATIVE (Neg)
[2022-04-01 14:44] LABS: URINE HCG POSITIVE (NEG)
[2022-04-01 14:49] LABS: UA COLLECTION TYPE STRAIGHT CATH
[2022-04-01 14:51] LABS: BACTERIA,URINE 4+ /HPF (Neg); RBC,URINE NONE SEEN /HPF (0-2)
[2022-04-01 14:52] LABS: MUCUS STRANDS NONE SEEN /LPF (Neg); SQUAMOUS EPITHELIAL CELL,UR MANY /LPF (FEW); TRANSITIONAL EPI CELLS,URINE MODERATE /HPF
[2022-04-01] MEDS ORDERED: morphine 4 MG/ML inj SYRINge IV STA (14:53)
[2022-04-01] MEDS ORDERED: ondansetron/PF 4mg/2ml inj IV STA (14:53)
--- NOTE | 2022-04-01 17:23 | NUR ---
MD made aware of the patient's BP and MAP. A liter of NS ordered and infusing via pressure bag. Pt updated on POC.
[2022-04-01] MEDS ORDERED: normal saline 1000ml 1,000 ML IVB ONE (17:25)
--- NOTE | 2022-04-01 17:47 | NUR ---
Pt wheeled out in w/c by MRI at 1847.
--- NOTE | 2022-04-01 18:39 | NUR ---
Back from MRI
--- NOTE | 2022-04-01 19:00 | NUR ---
Notified Dr King of pt B/P 90/52 , HR 114 and c/o right flank pain unrelieved
[2022-04-01] MEDS ORDERED: normal saline 1000ML IV soln IVB ONE (19:15)
[2022-04-01] MEDS ORDERED: acetaminophen 1,000mg/100ml IV 100 ML IV SCH (20:00)
--- NOTE | 2022-04-01 20:00 | NUR ---
Pt requesting morphine for pain. educated pt on risks of morphine with hyotension in regards to perfusion and possible effects on fetus. Pt declined morphine at this time
--- NOTE | 2022-04-01 20:15 | NUR ---
Notifed Dr King of pt B/P 82/42 HR 115, after 3L NS
--- NOTE | 2022-04-01 21:26 | NUR ---
Notified Dr King of pt B/P 79/40 HR 104, s/p 4L NS
[2022-04-01] MEDS ORDERED: POTASSIUM BICARB 20meq eff tab 20 MEQ TABLET.EFF PO ONE (21:35)
--- NOTE | 2022-04-01 22:10 | NUR ---
Pt tolerated 1/2 turkey sandwich with 240ml of apple juice.
--- NOTE | 2022-04-01 22:14 | NUR ---
Dr King at bedside updating pt
--- NOTE | 2022-04-02 00:16 | NUR ---
Pt blood pressure improved and she requested morphine for pain relief of 08/14, rec order and went to administer medication, however next blood pressure cycle had a systolic b/p of 94. Pt decided to wait on rec morphine and requested more pillows for repositioning/comfort. Morphine vial returned to [facility]
--- NOTE | 2022-04-02 00:20 | NUR ---
pt was able to void 600ml via bedpan
[2022-04-02] MEDS ORDERED: normal saline 1000ml 1,000 ML IV SCH (00:55)
[2022-04-02 02:20] VITALS: BP 102/52
--- NOTE | 2022-04-05 15:39 | NUR ---
PT CALLED REGARDING VISIT ON 04/01 AND THE NEED FOR ABX AFTER URINE CULTURE RESULTS. NO ANSWER AND MSG LEFT
--- NOTE | 2022-04-20 12:24 | NUR ---
PT RETURNED CALL REGARDING LAB WORK OBTAINED ON 04/01. PT WAS INFORMED THAT SHE HAD A UTI AND NOT ABX WERE GIVEN AT TIME OF DC. PT STATES THAT SHE DID GET IV ABX AFTER SHE WAS TRANSFERED TO A HIGHER LEVEL OF CARE FROM [facility] AND IS FEELING BETTER.
== END 2022-04-02 02:25 | disposition hospice, inpatient (51) ==
LOC: ER 11:01
DX: N12 Tubulo-interstitial nephritis, not specified as acute or chronic (principal); O23.02 Infections of kidney in pregnancy, second trimester; O99.891 Other specified diseases and conditions complicating pregnancy; E03.9 Hypothyroidism, unspecified; Z87.442 Personal history of urinary calculi; Z79.899 Other long term (current) drug therapy
CPT/HCPCS: 36415; 71045; 72195; 76700; 76805; 80053; 81001; 81025; 83605; 83735; 84145; 85025; 87040; 87077; 87088; 87186; 93005; 96361; 96374; 96375; 96376; 99285; J0131; J0696; J2270; J2405; J7030; J7120; A4353

== ENCOUNTER 2022-10-17 21:25 | Emergency (ER) | payer MEDICAID ==
[~2022-10-17] VITALS: Ht 162.6 cm; Wt 64.1 kg
[2022-10-17 21:35] VITALS: BP 111/64; PULSE 104; RESP 18; TEMP 97.8; O2SAT 98
[2022-10-17] MEDS ORDERED: diphenhydrAMINE 25mg capsule PO ONE (21:50)
[2022-10-17] MEDS ORDERED: EPIN0.1521 IM (23:34)
== END 2022-10-17 23:43 | disposition home or self-care (01) ==
LOC: ER 21:26
DX: T78.49XA Other allergy, initial encounter (principal); E03.9 Hypothyroidism, unspecified; E11.9 Type 2 diabetes mellitus without complications; Z79.899 Other long term (current) drug therapy; X58.XXXA Exposure to other specified factors, initial encounter
CPT/HCPCS: 99282; Q0163

== ENCOUNTER 2023-01-11 18:10 | Emergency (ER) | payer MEDICAID ==
[~2023-01-11] VITALS: Ht 165.1 cm; Wt 62.7 kg
[~2023-01-11 18:10] MED LIST changes: +EPIN0.1521 IM
[2023-01-11 18:17] VITALS: BP 132/66; PULSE 114; RESP 18; TEMP 98.2; O2SAT 98
[2023-01-11] MEDS ORDERED: METH4TAB81 PO (18:22)
[2023-01-11] MEDS ORDERED: HYDR-3686 PO (18:22)
== END 2023-01-11 18:34 | disposition home or self-care (01) ==
LOC: ER 18:11
DX: S40.862A Insect bite (nonvenomous) of left upper arm, initial encounter (principal); E11.9 Type 2 diabetes mellitus without complications; E03.9 Hypothyroidism, unspecified; E06.3 Autoimmune thyroiditis; Z72.89 Other problems related to lifestyle; Z56.0 Unemployment, unspecified; Z79.899 Other long term (current) drug therapy; W57.XXXA Bitten or stung by nonvenomous insect and other nonvenomous arthropods, initial encounter; Y93.89 Activity, other specified; Y92.89 Other specified places as the place of occurrence of the external cause; Y99.8 Other external cause status
CPT/HCPCS: 99283

== ENCOUNTER 2023-04-30 20:32 | Emergency (ER) | payer MEDICAID ==
[~2023-04-30] VITALS: Ht 162.6 cm; Wt 65.0 kg
[~2023-04-30 20:32] MED LIST changes: +METH4TAB81 PO
[2023-04-30 21:10] LABS: BASOPHILS # (AUTO) 0.1 X10'3 (0-0.2); BASOPHILS % (AUTO) 0.9 % (0-1); EOSINOPHILS # (AUTO) 0.1 X10'3 (0-0.9); EOSINOPHILS % (AUTO) 1.7 % (0-6); HEMATOCRIT 36.3 % (35.0-45.0); HEMOGLOBIN 12.1 g/dl (12.0-16.0); LYMPHOCYTES # (AUTO) 2.4 X10'3 (1.1-4.8); MEAN CORPUSCULAR HEMOGLOBIN 27.7 PG (27.0-31.0); MEAN CORPUSCULAR HGB CONC 33.4 g/dL (33.0-36.5); MEAN CORPUSCULAR VOLUME 82.9 FL (78-98); MEAN PLATELET VOLUME 7.3 FL (7.4-10.4); MONOCYTES # (AUTO) 0.6 X10'3 (0-0.9); MONOCYTES % (AUTO) 8.9 % (2-12); NEUTROPHILS # (AUTO) 3.3 X10'3 (1.8-7.7); NEUTROPHILS % (AUTO) 51.5 % (42-75); PLATELET COUNT 271 X10'3 (140-440); RED BLOOD COUNT 4.38 X10'6 (4.20-5.60); RED CELL DISTRIBUTION WIDTH 18.7 % (11.5-14.5); WHITE BLOOD COUNT 6.5 X10'3 (4.5-11.0)
[2023-04-30 21:26] LABS: ALANINE AMINOTRANSFERASE 26 U/L (12-78); ALBUMIN 3.7 G/DL (3.4-5.0); ANION GAP 10 (8-16); ASPARTATE AMINO TRANSFERASE 18 U/L (10-37); BILIRUBIN,TOTAL 0.3 MG/DL (0.1-1.0); BLOOD UREA NITROGEN 14 MG/DL (7-18); BUN/CREATININE RATIO 18.4 (10.0-20.0); CALCIUM 8.7 MG/DL (8.5-10.1); CHLORIDE 106 MMOL/L (99-107); CREATININE 0.76 MG/DL (0.40-0.90); GLUCOSE 100 MG/DL (70-104); SODIUM 139 MMOL/L (135-145); TOTAL CARBON DIOXIDE 23.2 MMOL/L (24-32); TOTAL PROTEIN 7.5 G/DL (6.4-8.2); eCRCL 95 ML/MIN; eGFR > 90 ML/MIN
[2023-04-30 21:27] LABS: ALKALINE PHOSPHATASE 65 IU/L (46-116); LIPASE 59 U/L (16-77)
[2023-04-30 22:03] VITALS: BP 98/68; PULSE 92; RESP 14; TEMP 98.8; O2SAT 98
[2023-04-30 22:22] LABS: BILIRUBIN,URINE NEGATIVE (Neg); CLARITY,URINE CLOUDY (Clear); COLOR,URINE YELLOW (Yellow); GLUCOSE, URINE NEGATIVE (Neg); KETONES,URINE NEGATIVE (Neg); LEUKOCYTE ESTERASE ,URINE NEGATIVE (Neg); NITRITES, URINE POSITIVE (Neg); OCCULT BLOOD,URINE TRACE-INTACT (Neg); PROTEIN,URINE NEGATIVE (Neg); URINE HCG NEGATIVE (NEG); UROBILINOGEN,URINE 0.2 E.U/dL (0.2-1.0)
[2023-04-30 22:38] LABS: UA COLLECTION TYPE CLN CATCH MIDSTREAM
[2023-04-30 22:43] LABS: BACTERIA,URINE 4+ /HPF (Neg); MUCUS STRANDS MODERATE /LPF (Neg); SQUAMOUS EPITHELIAL CELL,UR MANY /LPF (FEW)
[2023-04-30 22:44] LABS: RBC,URINE 0-2 /HPF (0-2); WBC,URINE 0-4 /HPF (0-4)
[2023-05-01 01:16] LABS: ANISOCYTOSIS 2+; BURR CELLS FEW; ELLIPTOCYTES FEW; PLATELET ESTIMATE NORMAL
== END 2023-05-01 00:21 | disposition left against medical advice (07) ==
LOC: ER 20:32
DX: R10.13 Epigastric pain (principal); Z53.21 Procedure and treatment not carried out due to patient leaving prior to being seen by health care provider
CPT/HCPCS: 36415; 80053; 81001; 81025; 83690; 85008; 85025; 99281

== ENCOUNTER 2023-08-10 22:18 | Emergency (ER) | payer MEDICAID ==
[~2023-08-10] VITALS: Ht 165.1 cm; Wt 66.3 kg
[2023-08-10] MEDS ORDERED: AMOX500C2 PO (23:34)
[2023-08-10] MEDS ORDERED: CARB15DR91 RIGHT EAR (23:36)
[2023-08-10] MEDS ORDERED: CARB15DR91 LEFT EAR (23:36)
[2023-08-10] MEDS: amoxicillin 250mg capsule PO ONE (23:44)
[2023-08-10 23:53] VITALS: BP 107/52; PULSE 86; RESP 16; TEMP 97.9; O2SAT 98
== END 2023-08-10 23:56 | disposition home or self-care (01) ==
LOC: ER 22:18
DX: H61.22 Impacted cerumen, left ear (principal); K04.7 Periapical abscess without sinus; E03.9 Hypothyroidism, unspecified; E11.9 Type 2 diabetes mellitus without complications; Z79.899 Other long term (current) drug therapy; Z79.2 Long term (current) use of antibiotics
CPT/HCPCS: 99283